=== PATIENT | female | born 1960 | race Caucasian/White ===

== ENCOUNTER 2018-04-04 05:08 | Emergency (ER) | payer MEDICAID ==
[~2018-04-04] VITALS: Ht 154.9 cm; Wt 45.8 kg
[2018-04-04 05:22] VITALS: Ht 154.9 cm; Wt 45.8 kg
[2018-04-04 07:09] VITALS: BP 134/86
== END 2018-04-04 07:10 | disposition home or self-care (01) ==
LOC: ED 05:08
DX: S01.01XA Laceration without foreign body of scalp, initial encounter (principal); S09.90XA Unspecified injury of head, initial encounter; Z88.2 Allergy status to sulfonamides; Z88.1 Allergy status to other antibiotic agents; W22.8XXA Striking against or struck by other objects, initial encounter; Y93.89 Activity, other specified; Y92.89 Other specified places as the place of occurrence of the external cause; Y99.8 Other external cause status
CPT/HCPCS: 90714; J2001

== ENCOUNTER 2018-04-17 02:31 | Emergency (ER) | payer MEDICAID ==
[~2018-04-17] VITALS: Ht 154.9 cm; Wt 47.2 kg
[2018-04-17 02:41] VITALS: Ht 154.9 cm; Wt 47.2 kg
[2018-04-17 03:10] VITALS: BP 124/75
== END 2018-04-17 03:10 | disposition home or self-care (01) ==
LOC: ED 02:31
DX: S01.01XD Laceration without foreign body of scalp, subsequent encounter (principal); W22.8XXA Striking against or struck by other objects, initial encounter; Z88.2 Allergy status to sulfonamides; Z88.1 Allergy status to other antibiotic agents